=== PATIENT | male | born 1950 | race Caucasian/White ===

== ENCOUNTER → 2016-09-18 | Outpatient (CLI) | payer OTHER, MEDICARE ==
[~2016-09-18] MED LIST: ANTACID650 MG PO; ASPIRIN81 M1 PO; Antacid PO; BACTRIM,SEPT1 TABLET PO; BIOTIN10000 MC1 PO; CARVEDILOL6.25 MG PO; CIPRO500 MG PO; COMPAZINE10 MG PO; Carvedilol PO; Coreg PO; DEXAMETHASONE4 MG PO; DILAUDID2 MG PO; Dexamethasone PO; Dilaudid PO; EMEND PO; ENDOCET 5-3251 EACH PO; FOLIC ACID0.4 MG PO; FOLVITE1 M1 PO; Flagyl PO; GABAPENTIN400 MG PO; INVanz IV; IRON PO; KEFLEX500 MG PO; LOMOTIL2.5 MG/5 M PO; LYRICA100 MG PO; MAGNESIUM250 MG PO; OMEPRAZOLE40 M1 PO; OXYCODONE-ACET1 EACH PO; PERCOCET 5-3251 EACH PO; PERCOCET 7.51 TABLET PO; PERCOCET PO; PRENATAL VITAM1 EAC3 PO; PRILOSEC OTC20 M1 PO; PRILOSEC20.6 MG PO; QUESTRAN4 GM/PACKE PO; ST. JOSEPH ASPI81 MG PO; THERAGRAN1 TABLET PO; TRAMADOL HCL50 MG PO; TUMS ULTRA1000 MG PO; VITAMIN B122500 MCG PO; VITAMIN D1000 INTUN PO; VITAMIN D1000 UNIT PO; WELCHOL625 MG PO; ZOLOFT50 MG PO; Zoloft PO; [UNRECOGNIZED DRUG - OTHER]
== END | disposition home or self-care (01) ==
LOC: RAD 14:15 → EDSTATUS 15:00
DX: N13.5 Crossing vessel and stricture of ureter without hydronephrosis (principal)
CPT/HCPCS: 50435; C1725; C1769

== ENCOUNTER → 2016-09-19 | Outpatient (CLI) | payer OTHER, MEDICARE | END | disposition home or self-care (01) | LOC: RAD 16:04 → EDSTATUS 16:30 → RAD 16:30 | DX: T83.89XA Other specified complication of genitourinary prosthetic devices, implants and grafts, initial encounter (principal) | CPT/HCPCS: 50435; C1725; C1769 ==

== ENCOUNTER → 2017-01-08 | Outpatient (CLI) | payer OTHER, MEDICARE | END | disposition home or self-care (01) | LOC: RAD 14:37 → EDSTATUS 15:00 | DX: Z93.6 Other artificial openings of urinary tract status (principal); N13.5 Crossing vessel and stricture of ureter without hydronephrosis; C67.9 Malignant neoplasm of bladder, unspecified | CPT/HCPCS: 50435; C1725; C1769 ==

== ENCOUNTER → 2017-04-29 | Outpatient (CLI) | payer OTHER, MEDICARE | END | disposition home or self-care (01) | LOC: RAD 12:38 → EDSTATUS 13:00 | DX: N13.5 Crossing vessel and stricture of ureter without hydronephrosis (principal); Z93.6 Other artificial openings of urinary tract status | CPT/HCPCS: 50435; 75984; C1725; C1769 ==

== ENCOUNTER → 2017-05-16 | Outpatient (CLI) | payer OTHER, MEDICARE | END | disposition home or self-care (01) | LOC: RAD 15:56 → EDSTATUS 16:00 → RAD 16:00 | DX: N13.5 Crossing vessel and stricture of ureter without hydronephrosis (principal) | CPT/HCPCS: 50435; C1725; C1769 ==

== ENCOUNTER → 2017-07-05 | Outpatient (CLI) | payer OTHER, MEDICARE ==
[~2017-07-05] MED LIST changes: +CHOLESTYRAMINE L4 GM PO; -GABAPENTIN400 MG PO; +NEURONTIN600 MG PO; +PRAVACHOL20 MG PO; +ROCALTROL0.25 MCG PO
== END | disposition home or self-care (01) ==
LOC: RAD 13:30 → EDSTATUS 15:00
PROC: 0T9330Z Drainage of Right Kidney Pelvis with Drainage Device, Percutaneous Approach (ICD-10-PCS; principal; 2017-07-05)
PROC: BT1DYZZ Fluoroscopy of Right Kidney, Ureter and Bladder using Other Contrast (ICD-10-PCS; principal; 2017-07-05)
PROC: 0T9430Z Drainage of Left Kidney Pelvis with Drainage Device, Percutaneous Approach (ICD-10-PCS; principal; 2017-07-05)
PROC: BT1FYZZ Fluoroscopy of Left Kidney, Ureter and Bladder using Other Contrast (ICD-10-PCS; principal; 2017-07-05)
DX: N13.5 Crossing vessel and stricture of ureter without hydronephrosis (principal)
CPT/HCPCS: 50435; 75984; C1729; C1769

== ENCOUNTER → 2017-07-06 | Outpatient (CLI) | payer OTHER, MEDICARE ==
[~2017-07-06] MED LIST changes: +MAG-OXIDE400 MG PO
== END | disposition home or self-care (01) ==
LOC: RAD 16:51
DX: T83.032A Leakage of nephrostomy catheter, initial encounter (principal); T83.022A Displacement of nephrostomy catheter, initial encounter
CPT/HCPCS: 50435; 75984; C1725; C1769

== ENCOUNTER 2017-07-07 09:23 | Inpatient (IN) | payer OTHER, MEDICARE ==
[~2017-07-07] VITALS: Ht 182.9 cm; Wt 128.1 kg
[~2017-07-07 09:23] MED LIST changes: -CHOLESTYRAMINE L4 GM PO; -MAG-OXIDE400 MG PO; -PRAVACHOL20 MG PO; -ROCALTROL0.25 MCG PO
[2017-07-07 10:46] LABS: BASOPHIL (%) 0.2 % (0-1); EOSINOPHIL (%) 0.1 % (0-5); HEMATOCRIT 38.4 % (38.0-50.0); HEMOGLOBIN 12.6 G/DL (12.5-16.6); IMMATURE GRANULOCYTE (%) 0.7 % (0.0-0.7); LYMPHOCYTE (%) 1.7 % (15-42); LYMPHOCYTE COUNT 0.3 K/uL (1.0-2.8); MCH 28.5 PG (29.0-34.0); MCHC 32.8 G/DL (30.0-36.0); MCV 86.9 FL (86-99); MONOCYTE (%) 5.8 % (3-12); MONOCYTE COUNT 0.9 K/uL (0-0.8); NEUTROPHIL (%) 91.5 % (45-76); NEUTROPHIL COUNT 14.1 K/uL (1.8-6.4); PLATELET COUNT 126 K/uL (156-360); RBC DIS.WIDTH-SD 47.9 % (39-53); RED BLOOD COUNT 4.42 M/uL (4.00-5.50); WHITE BLOOD COUNT 15.5 K/uL (4.1-10.2)
[2017-07-07 10:52] LABS: APPEARANCE TURBID ((CLEAR)); BILIRUBIN NEGATIVE; BLOOD LARGE; COLOR AMBER ((YELLOW)); GLUCOSE (STRIP) NEGATIVE; KETONES NEGATIVE; LEUKOCYTES LARGE; NITRITE NEGATIVE; PROTEIN (STRIP) 100; SPECIFIC GRAVITY 1.012 (1.000-1.030); UROBILINOGEN 0.2 MG/DL (0.2-1.0)
[2017-07-07 10:54] LABS: ALBUMIN 3.5 g/dL (3.2-4.8); CHLORIDE 105 mEq/L (99-109); POTASSIUM 3.6 mEq/L (3.7-5.4); SODIUM 138 mEq/L (136-147)
[2017-07-07 10:55] LABS: MAGNESIUM 1.2 mg/dL (1.3-2.7)
[2017-07-07 10:57] LABS: GLUCOSE 125 mg/dL (70-99); TOTAL PROTEIN 6.6 g/dL (6.4-8.3)
[2017-07-07 10:59] LABS: TOTAL BILIRUBIN 0.7 mg/dL (0.0-1.0)
[2017-07-07 11:00] LABS: ALKALINE PHOSPHATASE 65 IU/L (3-129)
[2017-07-07 11:01] LABS: GFR ESTIMATE (CALCULATED) 18 mL/min/ (58.99-99999)
[2017-07-07 11:02] LABS: AST (GOT) 17 IU/L (2-34); UREA NITROGEN (BUN) 44 mg/dL (9-23)
[2017-07-07 11:03] LABS: ALT (GPT) 7 IU/L (3-49)
[2017-07-07 11:06] LABS: EPITHELIAL CELLS 1+ /HPF; MUCUS NONE SEEN /LPF; UCUL ADDED? YES; WHITE BLOOD CELLS TNTC /HPF (0-5)
[2017-07-07 11:07] LABS: TROP-I INTERPRETATION NEGATIVE; TROPONIN-I 0.03 ng/mL (0.0-0.30)
[2017-07-07 11:07] LABS: BACTERIA 2+ /HPF; RED BLOOD CELLS 40-50 /HPF (0-5)
[2017-07-07 11:09] LABS: CREATININE 3.6 mg/dL (0.6-1.3)
[2017-07-07] MEDS ORDERED: PRAVACHOL20 MG PO (12:12)
[2017-07-07] MEDS ORDERED: CHOLESTYRAMINE L4 GM PO (12:13)
[2017-07-07] MEDS ORDERED: ROCALTROL0.25 MCG PO (12:13)
[2017-07-07 12:39] LABS: INTER. NORMALIZED RATIO 1.4
[2017-07-07 12:42] LABS: PTT 24.4 SEC (25-37)
[2017-07-07 14:08] VITALS: BP 104/58
[2017-07-07 19:16] VITALS: BP 119/57
[2017-07-07 23:26] VITALS: BP 113/58
[2017-07-08 03:31] VITALS: BP 116/54
[2017-07-08 07:09] LABS: HEMATOCRIT 32.2 % (38.0-50.0); MCH 28.6 PG (29.0-34.0); MCV 89.4 FL (86-99); RBC DIS.WIDTH-CV 15.1 % (11.8-14.6); RBC DIS.WIDTH-SD 49.5 % (39-53); WHITE BLOOD COUNT 9.7 K/uL (4.1-10.2)
[2017-07-08 07:16] LABS: HEMOGLOBIN 10.3 G/DL (12.5-16.6)
[2017-07-08 07:23] LABS: PLAT.SUFFICIENCY DECREASED
[2017-07-08 07:25] LABS: CHLORIDE 108 MEQ/L (99-109); CREATININE 3.2 MG/DL (0.6-1.3); GFR ESTIMATE (CALCULATED) 21 mL/min/ (58.99-99999); GLUCOSE 140 mg/dL (70-99); POTASSIUM 3.5 MEQ/L (3.7-5.4); SODIUM 140 MEQ/L (136-147); UREA NITROGEN (BUN) 41 mg/dL (9-23)
[2017-07-08 07:28] LABS: PLATELET COUNT 88 K/uL (156-360)
[2017-07-08 07:34] VITALS: BP 112/54
[2017-07-08 11:48] VITALS: BP 110/73
[2017-07-08 15:33] VITALS: BP 104/54
[2017-07-08 19:41] VITALS: BP 121/65
[2017-07-09 00:43] VITALS: BP 118/56
[2017-07-09 03:55] VITALS: BP 116/58
[2017-07-09 08:39] VITALS: BP 120/65
[2017-07-09 10:45] LABS: BASOPHIL (%) 0.3 % (0-1); EOSINOPHIL (%) 3.4 % (0-5); EOSINOPHIL COUNT 0.2 K/uL (0-0.3); HEMATOCRIT 34.8 % (38.0-50.0); HEMOGLOBIN 11.2 G/DL (12.5-16.6); IMMATURE GRANULOCYTE (%) 0.8 % (0.0-0.7); LYMPHOCYTE (%) 4.4 % (15-42); LYMPHOCYTE COUNT 0.3 K/uL (1.0-2.8); MCH 28.6 PG (29.0-34.0); MCHC 32.2 G/DL (30.0-36.0); MONOCYTE (%) 8.1 % (3-12); MONOCYTE COUNT 0.5 K/uL (0-0.8); NEUTROPHIL COUNT 4.9 K/uL (1.8-6.4); RBC DIS.WIDTH-CV 15.5 % (11.8-14.6); RED BLOOD COUNT 3.91 M/uL (4.00-5.50); WHITE BLOOD COUNT 5.9 K/uL (4.1-10.2)
[2017-07-09 10:57] LABS: PLATELET COUNT 121 K/uL (156-360)
[2017-07-09 11:01] LABS: CHLORIDE 112 mEq/L (99-109); POTASSIUM 3.6 mEq/L (3.7-5.4); SODIUM 139 mEq/L (136-147)
[2017-07-09 11:03] LABS: GLUCOSE 156 mg/dL (70-99)
[2017-07-09 11:06] LABS: CREATININE 3.5 mg/dL (0.6-1.3); GFR ESTIMATE (CALCULATED) 19 mL/min/ (58.99-99999)
[2017-07-09 11:07] LABS: UREA NITROGEN (BUN) 41 mg/dL (9-23)
[2017-07-09] MEDS ORDERED: CIPRO500 MG PO (11:23)
[2017-07-09 12:03] VITALS: BP 116/66
[2017-07-09 16:30] VITALS: BP 122/60
[2017-07-09 21:15] LABS: UR CREATININE CONCENTRATION 37.1 MG/DL
[2017-07-09 21:37] VITALS: BP 130/64
[2017-07-10 00:13] VITALS: BP 136/94
[2017-07-10 06:51] LABS: BASOPHIL (%) 0.3 % (0-1); EOSINOPHIL (%) 5.8 % (0-5); EOSINOPHIL COUNT 0.3 K/uL (0-0.3); HEMATOCRIT 34.4 % (38.0-50.0); HEMOGLOBIN 10.8 G/DL (12.5-16.6); IMMATURE GRANULOCYTE (%) 0.7 % (0.0-0.7); LYMPHOCYTE (%) 7.5 % (15-42); LYMPHOCYTE COUNT 0.4 K/uL (1.0-2.8); MCH 27.9 PG (29.0-34.0); MCHC 31.4 G/DL (30.0-36.0); MCV 88.9 FL (86-99); MONOCYTE (%) 10.5 % (3-12); MONOCYTE COUNT 0.6 K/uL (0-0.8); NEUTROPHIL (%) 75.2 % (45-76); NEUTROPHIL COUNT 4.3 K/uL (1.8-6.4); PLATELET COUNT 139 K/uL (156-360); RBC DIS.WIDTH-CV 15.4 % (11.8-14.6); RBC DIS.WIDTH-SD 49.9 % (39-53); RED BLOOD COUNT 3.87 M/uL (4.00-5.50); WHITE BLOOD COUNT 5.7 K/uL (4.1-10.2)
[2017-07-10 07:19] LABS: CHLORIDE 110 MEQ/L (99-109); CREATININE 3.2 MG/DL (0.6-1.3); GFR ESTIMATE (CALCULATED) 21 mL/min/ (58.99-99999); GLUCOSE 121 mg/dL (70-99); MAGNESIUM 1.5 mg/dl (1.3-2.7); POTASSIUM 3.9 MEQ/L (3.7-5.4); SODIUM 142 MEQ/L (136-147); UREA NITROGEN (BUN) 41 mg/dL (9-23)
[2017-07-10 07:50] LABS: INTACT PARATHYROID HORMONE 53 pg/mL (10-69)
[2017-07-10 08:12] VITALS: BP 129/74
[2017-07-10 12:04] VITALS: BP 134/66
[2017-07-10] MEDS ORDERED: MAG-OXIDE400 MG PO (12:17)
== END 2017-07-10 13:21 | disposition home or self-care (01) | DRG 871 ==
LOC: EME 09:23 → 5SOUTH 12:12 → EDOF 12:12 → ENRESERV 12:13 → 5SOUTH 14:02 → ENPENDDIS 07-10 → 5SOUTH 07-10 13:21
PROVIDERS: Emergency Medicine; Hospitalist; Internal Medicine; Physician Assistant
DX: A41.51 Sepsis due to Escherichia coli [E. coli] (principal); N17.0 Acute kidney failure with tubular necrosis; E87.2 Acidosis; F33.9 Major depressive disorder, recurrent, unspecified; I13.0 Hypertensive heart and chronic kidney disease with heart failure and stage 1 through stage 4 chronic kidney disease, or unspecified chronic kidney disease; I42.9 Cardiomyopathy, unspecified; N25.81 Secondary hyperparathyroidism of renal origin; N18.4 Chronic kidney disease, stage 4 (severe); Z66 Do not resuscitate; E11.22 Type 2 diabetes mellitus with diabetic chronic kidney disease; K21.9 Gastro-esophageal reflux disease without esophagitis; J45.909 Unspecified asthma, uncomplicated; I25.10 Atherosclerotic heart disease of native coronary artery without angina pectoris; I48.2 Chronic atrial fibrillation; E83.51 Hypocalcemia; E87.6 Hypokalemia; E83.42 Hypomagnesemia; E78.5 Hyperlipidemia, unspecified; E11.319 Type 2 diabetes mellitus with unspecified diabetic retinopathy without macular edema; E11.51 Type 2 diabetes mellitus with diabetic peripheral angiopathy without gangrene; G62.9 Polyneuropathy, unspecified; M21.371 Foot drop, right foot; M21.372 Foot drop, left foot; K76.0 Fatty (change of) liver, not elsewhere classified; F41.9 Anxiety disorder, unspecified; N25.89 Other disorders resulting from impaired renal tubular function; Z95.810 Presence of automatic (implantable) cardiac defibrillator; Z93.6 Other artificial openings of urinary tract status; Z96.651 Presence of right artificial knee joint; Z85.51 Personal history of malignant neoplasm of bladder; Z87.440 Personal history of urinary (tract) infections; Z90.49 Acquired absence of other specified parts of digestive tract; Z87.891 Personal history of nicotine dependence; Z79.82 Long term (current) use of aspirin; Z83.3 Family history of diabetes mellitus; Z82.49 Family history of ischemic heart disease and other diseases of the circulatory system
CPT/HCPCS: 50435; 71045; 75984; 76770; 80048; 80053; 81003; 82330; 82436; 82570; 83605; 83735; 83970; 84300; 84484; 85025; 85027; 85610; 85730; 87040; 87077; 87086; 87186; 87801; 89190; 93005; 99281; 99285; C1729; C1769; J0744; J1650; J2405; J2543; J3370; J3475; J7030; J7120

== ENCOUNTER 2017-07-31 05:11 | Day surgery (SDC) | payer OTHER, MEDICARE ==
[~2017-07-31] VITALS: Ht 182.9 cm; Wt 132.3 kg
[~2017-07-31 05:11] MED LIST changes: +CHOLESTYRAMINE L4 GM PO; +MAG-OXIDE400 MG PO; +PRAVACHOL20 MG PO; +ROCALTROL0.25 MCG PO
[2017-07-31 05:53] VITALS: BP 123/79
[2017-07-31 16:19] LABS: HEMATOCRIT 37.4 % (38.0-50.0); HEMOGLOBIN 11.8 G/DL (12.5-16.6); MCV 88.8 FL (86-99)
[2017-07-31 16:53] VITALS: BP 110/72
[2017-07-31 19:30] VITALS: BP 89/60
[2017-07-31 23:26] VITALS: BP 122/62
[2017-08-01 03:30] VITALS: BP 104/63
[2017-08-01 07:50] VITALS: BP 99/60
== END 2017-08-01 13:00 | disposition home or self-care (01) ==
LOC: SDC 05:11 → 2EAST 14:10 → 2SOUTH 14:10 → ENRESERV 14:28 → SDC 15:45 → 2EAST 16:42
PROVIDERS: Podiatrist Foot & Ankle Surgery
PROC: 01NG0ZZ Release Tibial Nerve, Open Approach (ICD-10-PCS; principal; 2017-07-31)
PROC: 0SGF04Z Fusion of Right Ankle Joint with Internal Fixation Device, Open Approach (ICD-10-PCS; principal; 2017-07-31)
PROC: 0SNF0ZZ Release Right Ankle Joint, Open Approach (ICD-10-PCS; principal; 2017-07-31)
DX: M21.6X1 Other acquired deformities of right foot (principal); M24.571 Contracture, right ankle; I42.9 Cardiomyopathy, unspecified; J44.9 Chronic obstructive pulmonary disease, unspecified; I12.9 Hypertensive chronic kidney disease with stage 1 through stage 4 chronic kidney disease, or unspecified chronic kidney disease; N18.4 Chronic kidney disease, stage 4 (severe); D64.9 Anemia, unspecified; K21.9 Gastro-esophageal reflux disease without esophagitis; I48.91 Unspecified atrial fibrillation; Z79.82 Long term (current) use of aspirin; Z93.50 Unspecified cystostomy status; Z95.0 Presence of cardiac pacemaker
CPT/HCPCS: 73610; 76000; 85014; 85018; 87641; C1713; C1769; G0378; G8978 GP CI; G8979 GP CH; J1100; J1650; J2250; J2405; J2795; J3010; J3370; J7050; S0020

== ENCOUNTER → 2017-10-21 | Outpatient (CLI) | payer OTHER, MEDICARE | END | disposition home or self-care (01) | LOC: RAD 14:22 | PROC: 0T9330Z Drainage of Right Kidney Pelvis with Drainage Device, Percutaneous Approach (ICD-10-PCS; principal; 2017-10-21) | PROC: BT1FYZZ Fluoroscopy of Left Kidney, Ureter and Bladder using Other Contrast (ICD-10-PCS; principal; 2017-10-21) | PROC: BT1DYZZ Fluoroscopy of Right Kidney, Ureter and Bladder using Other Contrast (ICD-10-PCS; principal; 2017-10-21) | PROC: 0T9430Z Drainage of Left Kidney Pelvis with Drainage Device, Percutaneous Approach (ICD-10-PCS; principal; 2017-10-21) | DX: N13.5 Crossing vessel and stricture of ureter without hydronephrosis (principal) | CPT/HCPCS: 50435; 75984; C1725; C1769 ==

== ENCOUNTER 2017-12-11 18:25 | Inpatient (IN) | payer OTHER, MEDICARE ==
[~2017-12-11] VITALS: Ht 182.9 cm; Wt 122.5 kg
[~2017-12-11 18:25] MED LIST changes: -VITAMIN D1000 UNIT PO; +VITAMIN D31000 UNI2 PO
[2017-12-11 19:33] LABS: HEMATOCRIT 46.4 % (38.0-50.0); MCH 26.8 PG (29.0-34.0); MCHC 32.3 G/DL (30.0-36.0); PLATELET COUNT 204 K/uL (156-360); RBC DIS.WIDTH-CV 15.9 % (11.8-14.6); RED BLOOD COUNT 5.59 M/uL (4.00-5.50); WHITE BLOOD COUNT 13.3 K/uL (4.1-10.2)
[2017-12-11 19:42] LABS: ALBUMIN 4.3 g/dL (3.2-4.8); CHLORIDE 103 mEq/L (99-109); SODIUM 138 mEq/L (136-147)
[2017-12-11 19:44] LABS: GLUCOSE 126 mg/dL (70-99); TOTAL PROTEIN 8.9 g/dL (6.4-8.3)
[2017-12-11 19:46] LABS: TOTAL BILIRUBIN 0.5 mg/dL (0.0-1.0)
[2017-12-11 19:48] LABS: ALKALINE PHOSPHATASE 137 IU/L (3-129); CREATININE 2.6 mg/dL (0.6-1.3); GFR ESTIMATE (CALCULATED) 26 mL/min/ (58.99-99999); POTASSIUM 6.1 mEq/L (3.7-5.4)
[2017-12-11 19:49] LABS: UREA NITROGEN (BUN) 37 mg/dL (9-23)
[2017-12-11 19:50] LABS: AST (GOT) 27 IU/L (2-34)
[2017-12-11 19:51] LABS: ALT (GPT) 8 IU/L (3-49); LIPASE 11 U/L (1.0-51.0)
[2017-12-11 20:39] LABS: APPEARANCE CLOUDY ((CLEAR)); BILIRUBIN NEGATIVE; BLOOD LARGE; COLOR AMBER ((YELLOW)); GLUCOSE (STRIP) NEGATIVE; KETONES NEGATIVE; LEUKOCYTES LARGE; NITRITE NEGATIVE; PROTEIN (STRIP) 100; SPECIFIC GRAVITY 1.017 (1.000-1.030); UROBILINOGEN 0.2 MG/DL (0.2-1.0)
[2017-12-11 20:50] LABS: TROP-I INTERPRETATION NEGATIVE; TROPONIN-I < 0.01 ng/mL (0.0-0.30)
[2017-12-11 21:14] LABS: BACTERIA 3+ /HPF; EPITHELIAL CELLS NONE SEEN /HPF; MUCUS NONE SEEN /LPF; RED BLOOD CELLS TNTC /HPF (0-5); UCUL ADDED? YES; WHITE BLOOD CELLS TNTC /HPF (0-5)
[2017-12-11 21:16] LABS: POTASSIUM 4.7 mEq/L (3.7-5.4)
[2017-12-11 21:24] LABS: NO-CHARGE AST (GOT) 18 IU/L (2-34)
[2017-12-11] MEDS ORDERED: MEGA BIOTIN10000 MCG PO (21:50)
[2017-12-11] MEDS ORDERED: FEOSOL325 MG PO (21:55)
[2017-12-11] MEDS ORDERED: ZOLOFT100 MG PO (21:56)
[2017-12-11 23:00] VITALS: BP 157/70
[2017-12-12 04:30] VITALS: BP 112/75
[2017-12-12 05:30] LABS: BASOPHIL (%) 0.2 % (0-1); EOSINOPHIL (%) 0.4 % (0-5); HEMATOCRIT 43.9 % (38.0-50.0); HEMOGLOBIN 13.5 G/DL (12.5-16.6); IMMATURE GRANULOCYTE (%) 0.7 % (0.0-0.7); LYMPHOCYTE (%) 7.1 % (15-42); LYMPHOCYTE COUNT 0.8 K/uL (1.0-2.8); MCH 25.9 PG (29.0-34.0); MCHC 30.8 G/DL (30.0-36.0); MCV 84.3 FL (86-99); MONOCYTE (%) 6.9 % (3-12); MONOCYTE COUNT 0.8 K/uL (0-0.8); NEUTROPHIL (%) 84.7 % (45-76); NEUTROPHIL COUNT 9.6 K/uL (1.8-6.4); PLATELET COUNT 210 K/uL (156-360); RBC DIS.WIDTH-CV 15.9 % (11.8-14.6); RBC DIS.WIDTH-SD 47.8 % (39-53); RED BLOOD COUNT 5.21 M/uL (4.00-5.50); WHITE BLOOD COUNT 11.3 K/uL (4.1-10.2)
[2017-12-12 06:03] LABS: ALBUMIN 3.8 G/DL (3.2-4.8); ALKALINE PHOSPHATASE 91 IU/L (3-129); ALT (GPT) 6 IU/L (3-49); AST (GOT) 11 IU/L (2-34); CHLORIDE 107 MEQ/L (99-109); CREATININE 2.4 MG/DL (0.6-1.3); GFR ESTIMATE (CALCULATED) 29 mL/min/ (58.99-99999); GLUCOSE 105 mg/dL (70-99); POTASSIUM 3.8 MEQ/L (3.7-5.4); SODIUM 143 MEQ/L (136-147); TOTAL BILIRUBIN 0.5 MG/DL (0.0-1.0); UREA NITROGEN (BUN) 41 mg/dL (9-23)
[2017-12-12 08:00] VITALS: BP 112/71
[2017-12-12 11:00] VITALS: BP 114/71
[2017-12-12 17:00] VITALS: BP 126/77
[2017-12-12 20:43] VITALS: BP 170/86
[2017-12-12 21:01] VITALS: BP 127/62
[2017-12-13] VITALS (9 sets, daily range): BP systolic 117–163; BP diastolic 63–84
[2017-12-13 10:31] LABS: HEMATOCRIT 40.7 % (38.0-50.0); HEMOGLOBIN 12.2 G/DL (12.5-16.6); MCV 86.6 FL (86-99); PLATELET COUNT 161 K/uL (156-360); RBC DIS.WIDTH-CV 16.1 % (11.8-14.6); RBC DIS.WIDTH-SD 50.2 % (39-53); WHITE BLOOD COUNT 6.9 K/uL (4.1-10.2)
[2017-12-13 10:56] LABS: CHLORIDE 113 MEQ/L (99-109); CREATININE 2.6 MG/DL (0.6-1.3); GFR ESTIMATE (CALCULATED) 26 mL/min/ (58.99-99999); GLUCOSE 103 mg/dL (70-99); POTASSIUM 3.5 MEQ/L (3.7-5.4); SODIUM 142 MEQ/L (136-147); UREA NITROGEN (BUN) 35 mg/dL (9-23)
[2017-12-13 12:38] LABS: C DIFF TOXIN NEGATIVE (NEGATIVE)
[2017-12-14 03:42] VITALS: BP 127/62
[2017-12-14 08:15] VITALS: BP 114/63
[2017-12-14 11:06] VITALS: BP 149/69
[2017-12-14 11:23] LABS: BASOPHIL (%) 0.3 % (0-1); EOSINOPHIL (%) 2.4 % (0-5); EOSINOPHIL COUNT 0.2 K/uL (0-0.3); HEMATOCRIT 37.4 % (38.0-50.0); HEMOGLOBIN 11.5 G/DL (12.5-16.6); IMMATURE GRANULOCYTE (%) 0.7 % (0.0-0.7); LYMPHOCYTE (%) 6.2 % (15-42); LYMPHOCYTE COUNT 0.4 K/uL (1.0-2.8); MCH 26.7 PG (29.0-34.0); MCHC 30.7 G/DL (30.0-36.0); MCV 86.8 FL (86-99); MONOCYTE (%) 6.3 % (3-12); MONOCYTE COUNT 0.5 K/uL (0-0.8); NEUTROPHIL (%) 84.1 % (45-76); PLATELET COUNT 144 K/uL (156-360); RBC DIS.WIDTH-CV 16.5 % (11.8-14.6); RBC DIS.WIDTH-SD 51.2 % (39-53); RED BLOOD COUNT 4.31 M/uL (4.00-5.50); WHITE BLOOD COUNT 7.1 K/uL (4.1-10.2)
[2017-12-14 11:48] LABS: CHLORIDE 117 MEQ/L (99-109); CREATININE 2.2 MG/DL (0.6-1.3); GFR ESTIMATE (CALCULATED) 32 mL/min/ (58.99-99999); GLUCOSE 101 mg/dL (70-99); POTASSIUM 3.7 MEQ/L (3.7-5.4); SODIUM 143 MEQ/L (136-147); UREA NITROGEN (BUN) 24 mg/dL (9-23)
[2017-12-14 15:48] VITALS: BP 123/65
[2017-12-14 23:46] VITALS: BP 119/71
[2017-12-15 08:20] VITALS: BP 144/67
== END 2017-12-15 12:00 | disposition home or self-care (01) | DRG 390 ==
LOC: EME 18:25 → EDOF 21:48 → 3EAST 21:48 → ENRESERV 21:49 → 3EAST 22:57
PROVIDERS: Emergency Medicine; Internal Medicine
DX: K56.600 Partial intestinal obstruction, unspecified as to cause (principal); E87.5 Hyperkalemia; D72.829 Elevated white blood cell count, unspecified; I12.9 Hypertensive chronic kidney disease with stage 1 through stage 4 chronic kidney disease, or unspecified chronic kidney disease; N18.3 Chronic kidney disease, stage 3 (moderate); I25.10 Atherosclerotic heart disease of native coronary artery without angina pectoris; K21.9 Gastro-esophageal reflux disease without esophagitis; E78.5 Hyperlipidemia, unspecified; F32.9 Major depressive disorder, single episode, unspecified; G57.90 Unspecified mononeuropathy of unspecified lower limb; D64.9 Anemia, unspecified; Z96.651 Presence of right artificial knee joint; E66.9 Obesity, unspecified; Z68.36 Body mass index [BMI] 36.0-36.9, adult; Z93.6 Other artificial openings of urinary tract status; Z89.612 Acquired absence of left leg above knee; I25.2 Old myocardial infarction; Z95.810 Presence of automatic (implantable) cardiac defibrillator; Z85.51 Personal history of malignant neoplasm of bladder; Z87.891 Personal history of nicotine dependence; Z79.82 Long term (current) use of aspirin
CPT/HCPCS: 74018; 74019; 74176; 80048; 80053; 81003; 83690; 84132 91; 84484; 84999; 85025; 85027; 87040; 87086 GA; 87493; 93005; 99281; 99285; C9113; J0696; J1644; J1885; J2270; J2405; J3010; J3480; J7030

== ENCOUNTER → 2018-02-17 | Outpatient (CLI) | payer OTHER, MEDICARE ==
[~2018-02-17] MED LIST changes: +FEOSOL325 MG PO; +MEGA BIOTIN10000 MCG PO; +ZOLOFT100 MG PO
== END | disposition home or self-care (01) ==
LOC: RAD 13:33
PROC: 0T25X0Z Change Drainage Device in Kidney, External Approach (ICD-10-PCS; principal; 2018-02-17)
PROC: BT1FYZZ Fluoroscopy of Left Kidney, Ureter and Bladder using Other Contrast (ICD-10-PCS; principal; 2018-02-17)
DX: N13.5 Crossing vessel and stricture of ureter without hydronephrosis (principal); Z85.51 Personal history of malignant neoplasm of bladder
CPT/HCPCS: 50435; C1725; C1769